=== PATIENT | male | born 1990 | race Caucasian/White ===

== ENCOUNTER 2017-10-08 02:47 | Emergency (ER) | payer SELFPAY ==
[~2017-10-08] VITALS: Ht 177.8 cm; Wt 75.8 kg
[2017-10-08] MEDS ORDERED: KETOROLAC 30 MG/1 ML IM ONE (03:00)
[2017-10-08] MEDS ORDERED: KETOROLAC 30 MG/1 ML ONE (03:02)
[2017-10-08 03:20] LABS: HEMATOCRIT 43.1 % (39.2-51.8); HEMOGLOBIN 14.8 g/dL (13.7-18.0); WHITE BLOOD COUNT 8.9 x10^3/uL (3.4-10)
[2017-10-08 03:23] LABS: RAPID INFLUENZA A Negative (Negative); RAPID INFLUENZA B Negative (Negative)
[2017-10-08 03:26] LABS: BLOOD UREA NITROGEN 12 mg/dL (7-18)
[2017-10-08 03:32] LABS: IS PT STATUS REG ER OR PRE ER? YES
[2017-10-08 04:04] VITALS: BP 124/75
== END 2017-10-08 04:12 | disposition home or self-care (01) ==
LOC: ED 04:06
DX: R07.2 Precordial pain (principal)
CPT/HCPCS: 36415; 71020; 80048; 82040; 84484; 85025; 87400; 93005; 96372; 99285; J1885

== ENCOUNTER 2018-06-15 22:52 | Emergency (ER) | payer SELFPAY ==
[~2018-06-15] VITALS: Ht 177.8 cm; Wt 69.0 kg
[2018-06-15 22:57] VITALS: BP 107/72
== END 2018-06-15 23:48 | disposition home or self-care (01) ==
LOC: ED 23:20
DX: H10.023 Other mucopurulent conjunctivitis, bilateral (principal); F17.200 Nicotine dependence, unspecified, uncomplicated
CPT/HCPCS: 99283

== ENCOUNTER 2018-07-08 18:24 | Emergency (ER) | payer MEDICAID ==
[~2018-07-08] VITALS: Ht 177.8 cm; Wt 68.0 kg
[2018-07-08 18:45] VITALS: BP 117/66
[2018-07-08 19:25] LABS: CULTURE INDICATED? YES; MICROSCOPIC INDICATED
[2018-07-08] MEDS ORDERED: IBUPROFEN 200 MG TABLET PO ONE (19:30)
[2018-07-08] MEDS ORDERED: IBUPROFEN 200 MG TABLET ONE (20:16)
[2018-07-08] MEDS ORDERED: CEFTRIAXONE 250 MG ONE (20:41)
[2018-07-08] MEDS ORDERED: LIDOCAINE-MPF 1%, 2ML ONE (20:41)
[2018-07-08] MEDS ORDERED: CEFTRIAXONE 250 MG IM ONE (21:00)
== END 2018-07-08 20:52 | disposition home or self-care (01) ==
LOC: ED 20:45
DX: N45.3 Epididymo-orchitis (principal); N34.2 Other urethritis; F17.210 Nicotine dependence, cigarettes, uncomplicated
CPT/HCPCS: 76870; 81001; 87086; 87491; 87591; 96372; 99285; J0696

== ENCOUNTER 2019-09-25 11:47 | Emergency (ER) | payer MEDICAID ==
[~2019-09-25] VITALS: Ht 177.8 cm; Wt 75.0 kg
--- NOTE | 2019-09-25 11:57 | NUR ---
PT BIB [facility] FOR TESTICULAR PAIN FOR 3 DAYS WITH WHITE DC. PT'S LEFT TESTICLE IS LARGER THAN RIGHT AND MORE TENDER. FEVER OF 100.2. CHART UP FOR .
--- NOTE | 2019-09-25 12:20 | NUR ---
report received from SUSANNA Dodge, assuming care at this time. ERP Tish notified of patient complaint of discharge from urethra, ERP declines to order gc/chlamydia at this time. pt resting on gurney, a&o, resps even and unlabored. pt educated to provide clean catch urine when able, supplies at bedside. pt denies urge to void at this time.
[2019-09-25] MEDS ORDERED: KETOROLAC 60 MG/2 ML ONE (12:33)
--- NOTE | 2019-09-25 12:49 | NUR ---
pt reports testicular pain level 4/10 at this time, pt a&o, resps even and unlabored, nadn. awaiting UA results and dispo at this time.
[2019-09-25] MEDS ORDERED: CEFTRIAXONE 250 MG IM ONE (13:00)
[2019-09-25 13:08] LABS: CULTURE INDICATED? YES; MICROSCOPIC INDICATED
[2019-09-25] MEDS ORDERED: CEFTRIAXONE 250 MG ONE (13:54)
[2019-09-25 14:10] VITALS: BP 124/76
[2019-09-25] MEDS ORDERED: OXYcodone/APAP 5/325MG TABLET PO ONE (14:30)
--- NOTE | 2019-09-25 14:30 | NUR ---
LATE ENTRY D/T PATIENT CARE: THIS RN ATTEMPTED TO DISCHARGE PT, PT REPORTING RETURN OF SEVERE TESTICULAR PAIN. ZUHAIR LOVELACE INFORMED, ORDER RECEIVED FOR OXYCODONE. REPORT GIVEN TO SUSANNA PINEDA.
[2019-09-25] MEDS ORDERED: OXYcodone/APAP 5/325MG TABLET ONE (14:37)
--- NOTE | 2019-09-25 14:39 | NUR ---
DESPITE RX, PT CONTINUES TO REPORT 9/10 PAIN. PT MEDICATED PER EMAR AND ASSISTED TO DC. PT TO TAKE TAXI HOME
== END 2019-09-25 14:41 | disposition home or self-care (01) ==
LOC: ED 11:59
DX: N45.3 Epididymo-orchitis (principal)
CPT/HCPCS: 76870; 81001; 87086; 96372; 99284; J0696; 87077